=== PATIENT | male | born 1985 | race African-American/Black ===

== ENCOUNTER → 2019-05-08 | Outpatient (CLI) | payer OTHER ==
--- NOTE | 2019-05-08 18:44 | REP ---
MRI LEFT ANKLE: TECHNIQUE: Sagittal proton density, STIR, axial proton density fat sat, T1, coronal proton density, STIR. The Achilles, anterior tibial, posterior tibial, flexor halluces longus, flexor digitorum longus and peroneal tendons all appear to be intact. I do not see evidence of significant tenosynovitis. Anterior and posterior talofibular, calcaneofibular, tibiofibular and deltoid ligaments are intact. Plantar fascia demonstrates no abnormal signal. I see no evidence of plantar fasciitis. No ganglion cyst is seen. There is a normal amount of joint fluid. There is no bone marrow edema or occult fracture. No cartilaginous defect is seen at the tibiotalar joint. IMPRESSION: Essentially negative MRI left ankle. Electronically Signed by Pato Olivo MD 05/08/2019 07:50 P
--- NOTE | 2019-05-08 19:53 | REP ---
MR LUMBAR SPINE WITHOUT CONTRAST: Multiple sequences obtained in the axial and sagittal planes. Vertebral bodies are normal in height and are well aligned. Residual red marrow is seen in the vertebral bodies. No bone lesion is seen. There is no compression fracture or malalignment. Lumbar discs do not demonstrate significant degeneration and there is no significant disc space narrowing. Conus is unremarkable. There is no evidence of significant disc bulging or herniation at any level. Mild hypertrophy of the ligamentum flavum at L4-5 and L5-S1. There is no significant spinal stenosis or neural foraminal narrowing. IMPRESSION: Mild hypertrophy of the ligamentum flavum at L4-5 and L5-S1. No significant disc bulging or herniation. No spinal stenosis or neural foraminal narrowing. Electronically Signed by Pato Olivo MD 05/08/2019 08:15 P
== END ==
LOC: M PLARAD 15:05
PROVIDERS: ATTEND Family Medicine
DX: M24.28 Disorder of ligament, vertebrae (principal)